=== PATIENT | female | born 1970 | race African-American/Black ===

== ENCOUNTER 2017-11-20 12:12 | Emergency (ER) | payer BC, OTHER ==
[~2017-11-20] VITALS: Ht 177.8 cm; Wt 70.3 kg
--- NOTE | 2017-11-20 12:38 | Emergency Room Report ---
History of Present Illness General Chief Complaint: Multiple Trauma/Fall Source: Patient Present Illness HPI Patient is a 47-year-old female who presented after a recent trauma. The patient reportedly had a large metal fence fall on top of her. The patient was knocked to the ground. She reports having pain to the left side of her neck as well as her left arm. Patient had initial numbness to both legs as well as left arm. The patient denied loss of consciousness. The patient been ambulatory after the incident. Allergies: Coded Allergies: No Known Allergies (Unverified , 11/20/17) Patient History Past Medical History: unable to obtain Last Menstrual Period: 2 weeks ago Reviewed Nursing Documentation: PMH: Agreed, PSxH: Agreed Nursing Documentation-PM Past Medical History: No History, Except For Hx Asthma: Yes Review of Systems All Other Systems: negative except mentioned in HPI Physical Exam Vital Signs Date Time Temp Pulse Resp B/P (MAP) Pulse Ox O2 Delivery O2 Flow Rate FiO2 11/20/17 12:01 98.1 75 20 146/95 98 Room Air Sp02 EP Interpretation: reviewed, normal General Appearance: normal inspection, alert, no apparent distress, GCS 15 Head: normocephalic, atraumatic Eyes: normal eye exam, PERRL, EOMI, lids + conjunctiva normal, no hyphema, no racoon eyes ENT: normal ENT inspection, TMs + canals normal, oropharynx normal, no martinez signs Neck: trach midline, no bony tend, other - muscle spasm, left side paraspinous muscle spasma Respiratory: effort normal, no retractions, clear to auscultation, chest symmetrical, palpation of chest normal, speaking in full sentences Cardiovascular: regular rate, rhythm, no JVD Cardiovascular #2: 2+ radial (R), 2+ radial (L), 2+ dorsalis pedis (R), 2+ dorsalis pedis (L) Gastrointestinal: normal inspection, non-tender, non-distended, no rebound/ guarding, normal bowel sounds Genitourinary: normal inspection Musculoskeletal: normal inspection, normal ROM, non-tender, back normal, other - antalgic gait Skin: no rash, no lacerations, normal palpation Lymphatic: normal inspection Neurologic: normal inspection, CN II-XII intact, oriented x3, motor strength/ tone normal, normal speech, gait normal - antalgic, other Psychiatric: normal inspection, judgment & insight normal, memory normal, mood normal, no suicidal/homicidal ideation Medical Decision Making Diagnostic Impression: Primary Impression: Cervical disc disorder at C5-C6 level with radiculopathy Additional Impressions: Cervical disc disorder at C4-C5 level with radiculopathy Radiculopathy ER Course The patient presented for neck pain. Differential diagnosis included vertebral artery dissection, myocardial infarction, cervical fracture, arthritis, spondylolithises. Because of complexity of patient's case imaging studies were ordered. CT of the cervical spine radiologist showed multilevel degenerative changes with disc bulge at C4-C5 and C5-C6. Because of patient's left arm numbness MRI was ordered. MR read by radiology showed a cervical stenosis moderate in severity. The patient was advised neurosurgical followup for reevaluation cervical stenosis and possible surgical managementAt the time of discharge patient was ambulatory without assistance. The patient was placed initially in a soft collar and was given a prescription for [place] collar. The patient was advised to the continues of [place] collar until cleared by neurosurgeon. Last Vital Signs Date Time Temp Pulse Resp B/P (MAP) Pulse Ox O2 Delivery O2 Flow Rate FiO2 11/20/17 12:01 98.1 75 20 146/95 98 Room Air Status: improved Disposition: HOME, SELF-CARE Condition: Stable Scripts [[place] collar M/L] No Conflict Check for For Pain, #1 Prov: Palomo Wright 11/20/17 Methocarbamol* (ROBAXIN-750*) 750 Mg Tablet 750 MG PO TID, #21 TAB 0 Refills Prov: Palomo Wright 11/20/17 Palomo Wright Nov 20, 2017 12:38
--- NOTE | 2017-11-20 13:20 | Diagnostic Imaging Report ---
Indication: Pain status post injury Technique: CT cervical spine was performed utilizing automated exposure control without intravenous contrast material. Axial, sagittal and coronal images were generated. CT dose: Total DLP 293.72 mGycm; CTDI vol 13.06 mGy Comparison: None Findings: There is no abnormal cervical curvature on coronal images. The cervical lordosis is maintained on sagittal views. There is no evidence of spondylolisthesis. There is no acute fracture. The anterior and lateral length atlantodental intervals are within normal limits. Vertebral body heights are within normal limits. There is no definite again bony central canal or foraminal stenosis. Mild degenerative change with suggested small disc bulges at C4-C5 and C5-C6. Imaged intracranial structures are grossly unremarkable. Mastoid air cells are clear. There is no prevertebral soft tissue abnormality or collection. A 8 mm low-attenuation nodule is noted within the right lobe of the thyroid. There is scarring with calcification in the right lung apex which may be sequela of remote infection or injury. Impression: No evidence of acute fracture or traumatic malalignment. Mild degenerative change with suggestion of small broad-based disc bulge at C4-C5 and C5-C6. Disc disease would be better evaluated on MRI. 8 mm low-attenuation nodule in the right lobe of the thyroid. Recommend nonemergent thyroid ultrasound for further characterization. Mild scarring with calcification in the right lung apex. The CT scanner at [facility] is accredited by the [employer] and the scans are performed using protocols designed to limit radiation exposure to as low as reasonably achievable to attain images of sufficient resolution adequate for diagnostic evaluation.
[2017-11-20] MEDS ORDERED: IBUPROFEN600 MG ORAL (13:34)
[2017-11-20] MEDS ORDERED: ROBAXIN-750750 MG PO (13:34)
--- NOTE | 2017-11-20 14:23 | Diagnostic Imaging Report ---
Indication: Pain Technique: XRAY Shoulder Compl L Comparison: None Findings: There is no acute fracture or dislocation. Soft tissues demonstrate no focal abnormality. Imaged left lung is clear. Abdominal shield in place. Impression: No acute fracture or dislocation.
[2017-11-20] MEDS ORDERED: [UNRECOGNIZED DRUG - SUPPLY] (15:36)
--- NOTE | 2017-11-20 15:50 | Diagnostic Imaging Report ---
Indication: Pain with left arm tingling status post trauma Technique: Sagittal T1 FLAIR PROPELLER, sagittal T2 PROPELLOR, sagittal STIR, axial T2 PROPELLER, axial 3D COSMIC ASPIR images were obtained through the cervical spine Comparison: Correlation made to concurrent cervical spine CT Findings: There is no abnormal cervical curvature. There is straightening of the cervical lordosis. There is no spondylolisthesis. No acute fractures identified. Vertebral body heights are within normal limits. There are mild multilevel degenerative changes of the cervical spine most pronounced at C4-C5 and C5-C6 where there are small disc osteophyte complexes, uncovertebral joint and facet hypertrophy that result in mild to moderate central canal stenosis and bilateral foraminal narrowing, left greater than right at C5-C6. There is a small disc osteophyte complex at C6-C7 which mildly indents the thecal sac. There is no focal cord signal abnormality. Imaged portions of the posterior fossa are unremarkable in appearance. Impression: No acute fracture or evidence of traumatic malalignment. Degenerative change of the cervical spine as above worst at C4-C5 and C5-C6 with there is mild to moderate central canal stenosis and foraminal narrowing. No focal cord signal abnormality.
[2017-11-20 15:56] VITALS: BP 154/93
[2017-11-20 15:57] VITALS: BP 154/93
--- NOTE | 2017-11-26 15:26 | Cardiology Report ---
APPROVED REPORT EKG Measurement Heart [id number] OR [id number] Normal sinus rhythm Rightward axis Borderline ECG
== END 2017-11-20 15:58 | disposition home or self-care (01) ==
LOC: EDBD 12:12 → EMR 13:15
DX: M50.121 Cervical disc disorder at C4-C5 level with radiculopathy (principal); J45.909 Unspecified asthma, uncomplicated
CPT/HCPCS: 72125; 72141; 93005; 99284